=== PATIENT | male | born 1980 | race African-American/Black ===

== ENCOUNTER 2019-05-09 12:34 | Emergency (ER) | payer BC ==
[2019-05-09 12:44] VITALS: BP 138/89; PULSE 100; TEMP 100.4; BMI 25.0
[2019-05-09] MEDS ORDERED: ACETAMINOPHEN 500 MG TABLET (FP) PO ONE (14:04)
--- NOTE | 2019-05-09 14:07 | PDOC ---
History of Present Illness - General Chief Complaint: Cold Symptoms Stated Complaint: FEVER/ COUGH Time Seen by Provider: 05/09/19 13:37 - History of Present Illness Initial Comments: 05/09/19 14:05 39-year-old male without comorbidities presents for flulike symptoms x1 day Past History - Past Medical History Allergies/Adverse Reactions: Allergies Allergy/AdvReac Type Severity Reaction Status Date / Time No Known Allergies Allergy Verified 05/09/19 12:44 Home Medications: Ambulatory Orders Ondansetron [Zofran -] 4 mg PO TID PRN #14 tablet 06/08/15 Oseltamivir Phosphate [Tamiflu] 75 mg PO BID #10 capsule 05/09/19 COPD: No - Psycho Social/Smoking Cessation Hx Smoking History: Current every day smoker Have you smoked in the past 12 months: Yes Number of Cigarettes Smoked Daily: 10 Information on smoking cessation initiated: No Hx Alcohol Use: No Drug/Substance Use Hx: No Substance Use Type: Alcohol Review of Systems - Review of Systems Constitutional: Yes: Chills, Fever, Malaise, Night Sweats HEENTM: Yes: Nose Congestion Respiratory: Yes: Cough Neurological: Yes: Headache *Physical Exam - Vital Signs Last Vital Signs Temp Pulse Resp BP Pulse Ox 100.4 F H 100 H 18 138/89 98 05/09/19 12:42 05/09/19 12:42 05/09/19 12:42 05/09/19 12:42 05/09/19 12:42 - Physical Exam 05/09/19 14:06 GENERAL: The patient is awake, alert, and fully oriented, in no acute distress. HEAD: Normal with no signs of trauma. EYES: sclera anicteric, conjunctiva clear. ENT: Ears normal tympanic membranes normal oropharynx clear uvula midline NECK: Normal range of motion LUNGS: Breath sounds equal, clear to auscultation bilaterally. No wheezes, and no crackles. HEART: S1 and S2 without murmur, rub or gallop. ABDOMEN: Soft, nontender, normoactive bowel sounds. No guarding, no rebound. No masses. EXTREMITIES: Normal range of motion, no edema. No clubbing or cyanosis. No cords, erythema, or tenderness. NEUROLOGICAL: Cranial nerves II through XII grossly intact. PSYCH: Normal mood, normal affect. SKIN: Warm, Dry, normal turgor, no rashes or lesions noted. Medical Decision Making - Medical Decision Making 05/09/19 14:06 We will treat for influenza based on symptoms and length of time Discharge - Discharge Information Problems reviewed: Yes Clinical Impression/Diagnosis: Influenza Condition: Stable Disposition: HOME - Admission No - Additional Discharge Information Prescriptions: Oseltamivir Phosphate [Tamiflu] 75 mg PO BID #10 capsule - Follow up/Referral Referrals: Bethany Barclay MD [Staff Physician] - - Patient Discharge Instructions Additional Instructions: Tylenol Motrin as directed for fever and body aches. Return to the emergency room for worsening symptoms and without fail follow-up with your primary care physician in 1 to 2 days for further evaluation and treatment options. Please take the Tamiflu as directed. - Post Discharge Activity Work/Back to School Note: Back to Work
[2019-05-09] MEDS ORDERED: ACETAMINOPHEN 500 MG TABLET (FP) ONE (14:11)
== END 2019-05-09 14:44 | disposition home or self-care (01) ==
LOC: JERFT 12:34
DX: J11.1 Influenza due to unidentified influenza virus with other respiratory manifestations (principal)
CPT/HCPCS: 99283-25

== ENCOUNTER 2020-10-02 14:26 | Emergency (ER) | payer BC ==
[2020-10-02 15:03] VITALS: TEMP 99.2; BMI 25.0
[2020-10-02] MEDS ORDERED: FAMOTIDINE 20 MG/50 ML IVPB 20 MG/50 ML MG IVPB ONE ×2 (16:00→16:19)
[2020-10-02] MEDS ORDERED: SODIUM CHLORIDE 0.9% 500 ML INFUS.BAG IV ONE (16:00)
[2020-10-02] MEDS ORDERED: ONDANSETRON 4 MG/2 ML VIAL IVPUSH ONE (16:00)
[2020-10-02] MEDS ORDERED: morphine CARPU-JECT 2 MG/1 ML DISP.SYRIN IVPUSH ONE (16:03)
[2020-10-02] MEDS ORDERED: MORPHINE SULFATE 2 MG/ML VIAL ONE (16:19)
[2020-10-02] MEDS ORDERED: ONDANSETRON 4 MG/2 ML VIAL ONE (16:19)
[2020-10-02 17:27] LABS: BASO % 0.2 % (0-2.0); EOS % 0.1 % (0-4.5); HEMATOCRIT 41.9 % (35.4-49); HEMOGLOBIN 14.1 GM/dL (11.7-16.9); LYMPH % 2.4 % (8-40); MCH 28.8 pg (25.7-33.7); MCHC 33.6 g/dl (32.0-35.9); MEAN CELL VOLUME 85.7 fl (80-96); MEAN PLT VOLUME 8.5 fl (7.5-11.1); MONO % 3.7 % (3.8-10.2); NEUT % 93.6 % (42.8-82.8); PLATELET COUNT 223 10^3/uL (134-434); RBC 4.89 M/mm3 (4.00-5.60); RDW 13.1 % (11.9-15.9); WHITE BLOOD COUNT 13.9 K/mm3 (4.0-10.0)
[2020-10-02 17:50] LABS: ALBUMIN 4.3 g/dl (3.4-5.0); CALCIUM 9.2 mg/dL (8.5-10.1)
[2020-10-02 17:52] LABS: BLOOD UREA NITROGEN 15.7 mg/dL (7-18)
[2020-10-02 17:55] LABS: TOT PROT 7.8 g/dl (6.4-8.2)
[2020-10-02 18:13] LABS: PLATELET ESTIMATE NORMAL
[2020-10-02 18:58] LABS: EPI CELLS 1 /uL (0-25.1); HYALINE CASTS 0 /uL (0-3.1); PH,URINE 5.5 (5.0-8.0); URINE APPEARANCE CLEAR; URINE BACTERIA 7 /uL (0-1359); URINE BILIRUBIN NEGATIVE (NEGATIVE); URINE COLOR YELLOW; URINE GLUCOSE (UA) NEGATIVE (NEGATIVE); URINE KETONE NEGATIVE (NEGATIVE); URINE LEUK ESTERASE NEGATIVE (NEGATIVE); URINE NITRITE NEGATIVE (NEGATIVE); URINE PROTEIN NEGATIVE (NEGATIVE); URINE RBC 16 /uL (0-23.9); URINE UROBILINOGEN 0.2 mg/dL (0.2-1.0); URINE WBC 1 /uL (0-25.8)
[2020-10-02] MEDS ORDERED: KETOROLAC TROMETHAMINE 30 MG/1 ML VIAL IVPUSH ONE (19:31)
[2020-10-02] MEDS ORDERED: metroNIDAZOLE 500 MG TABLET PO ONE (20:48)
[2020-10-02] MEDS ORDERED: KETOROLAC TROMETHAMINE 30 MG/1 ML VIAL ONE (20:54)
[2020-10-02] MEDS ORDERED: metroNIDAZOLE 250 MG TABLET ONE (20:54)
[2020-10-02 21:20] VITALS: BP 128/7; PULSE 89
== END 2020-10-02 21:20 | disposition home or self-care (01) ==
LOC: JER 14:26
PROC: 3E033GC Introduction of Other Therapeutic Substance into Peripheral Vein, Percutaneous Approach (ICD-10-PCS; principal; 2020-10-02)
PROC: 3E033GC Introduction of Other Therapeutic Substance into Peripheral Vein, Percutaneous Approach (ICD-10-PCS; 2020-10-02)
PROC: 3E0333Z Introduction of Anti-inflammatory into Peripheral Vein, Percutaneous Approach (ICD-10-PCS; 2020-10-02)
PROC: 3E033NZ Introduction of Analgesics, Hypnotics, Sedatives into Peripheral Vein, Percutaneous Approach (ICD-10-PCS; 2020-10-02)
PROC: 3E033GC Introduction of Other Therapeutic Substance into Peripheral Vein, Percutaneous Approach (ICD-10-PCS; 2020-10-02)
DX: K52.9 Noninfective gastroenteritis and colitis, unspecified (principal)
CPT/HCPCS: 36415; 71045-TC-FY; 74177-TC; 80053; 81003; 85025; 86850; 86900; 86901; 93005; 93010; 99285-25; C9803; Q9967; U0003; U0005

== ENCOUNTER 2021-03-06 09:56 | Emergency (ER) | payer BC ==
[2021-03-06 10:29] VITALS: BP 160/100; PULSE 76; TEMP 98; BMI 24.3
[2021-03-06] MEDS ORDERED: KETOROLAC TROMETHAMINE 30 MG/1 ML VIAL IM ONE (12:01)
[2021-03-06] MEDS ORDERED: KETOROLAC TROMETHAMINE 30 MG/1 ML VIAL ONE (12:04)
== END 2021-03-06 12:26 | disposition home or self-care (01) ==
LOC: JERFT 09:56 → JER 09:56 → JERFT 12:26
PROC: 3E0233Z Introduction of Anti-inflammatory into Muscle, Percutaneous Approach (ICD-10-PCS; principal; 2021-03-06)
DX: M10.9 Gout, unspecified (principal)
CPT/HCPCS: 99284-25

== ENCOUNTER 2021-09-03 08:41 | Emergency (ER) | payer BC, OTHER ==
[2021-09-03 08:55] VITALS: BMI 25.8
[2021-09-03] MEDS ORDERED: predniSONE 20 MG TABLET (UD) PO ONE (09:38)
[2021-09-03] MEDS ORDERED: KETOROLAC TROMETHAMINE 30 MG/1 ML VIAL IM ONE (09:43)
[2021-09-03] MEDS ORDERED: predniSONE 20 MG TABLET (UD) ONE (09:51)
[2021-09-03] MEDS ORDERED: KETOROLAC TROMETHAMINE 30 MG/1 ML VIAL ONE (09:51)
[2021-09-03 11:20] LABS: BASO % 0.3 % (0-2.0); EOS % 0.7 % (0-4.5); HEMATOCRIT 37.1 % (35.4-49); HEMOGLOBIN 12.6 GM/dL (11.7-16.9); LYMPH % 13.7 % (8-40); MCH 29.3 pg (25.7-33.7); MCHC 33.8 g/dl (32.0-35.9); MEAN CELL VOLUME 86.6 fl (80-96); MEAN PLT VOLUME 9.2 fl (7.5-11.1); MONO % 9.3 % (3.8-10.2); PLATELET COUNT 235 10^3/uL (134-434); RBC 4.29 M/mm3 (4.00-5.60); WHITE BLOOD COUNT 10.1 K/mm3 (4.0-10.0)
[2021-09-03 11:54] LABS: CALCIUM 8.8 mg/dL (8.5-10.1)
[2021-09-03 11:55] LABS: ALBUMIN 3.5 g/dl (3.4-5.0); BLOOD UREA NITROGEN 14.2 mg/dL (7-18)
[2021-09-03 11:58] LABS: CREATININE 0.8 mg/dL (0.55-1.3)
[2021-09-03 11:59] LABS: BILIRUBIN,TOTAL 0.7 mg/dL (0.2-1)
[2021-09-03 12:00] LABS: TOT PROT 7.3 g/dl (6.4-8.2)
[2021-09-03 12:08] LABS: ERYTHROCYTE SEDIMENTATION RATE 28 mm/hr (0-10)
[2021-09-03 14:32] VITALS: BP 138/57; PULSE 68; TEMP 98.1
== END 2021-09-03 14:32 | disposition home or self-care (01) ==
LOC: JER 08:41
PROC: 3E0233Z Introduction of Anti-inflammatory into Muscle, Percutaneous Approach (ICD-10-PCS; principal; 2021-09-03)
DX: M25.462 Effusion, left knee (principal); M79.605 Pain in left leg
CPT/HCPCS: 36415; 73560-TC-LT-FY; 80053; 84550; 85025; 85651; 86140; 93971-TC; 99285-25

== ENCOUNTER 2022-10-23 08:14 | Emergency (ER) | payer SELFPAY ==
[2022-10-23 08:19] VITALS: RESP 18; BMI 23.5
[2022-10-23] MEDS ORDERED: LACTATED RINGERS SOLUTION 1000 ML INFUS.BAG IV ONE (08:37)
[2022-10-23] MEDS ORDERED: FAMOTIDINE 20 MG/50 ML IVPB 20 MG/50 ML MG IVPB ONE (08:57)
[2022-10-23] MEDS ORDERED: PANTOPRAZOLE SODIUM 40 MG VIAL IVPUSH ONE (09:01)
[2022-10-23] MEDS ORDERED: ACETAMINOPHEN 1000 MG/100 ML BAG IVPB ONE (09:02)
[2022-10-23] MEDS ORDERED: diazePAM CARPU-JECT 10 MG/2 ML DISP.SYRIN IVPUSH ONE (09:04)
[2022-10-23] MEDS ORDERED: PANTOPRAZOLE SODIUM 40 MG/100 ML BAG IVPB ONE (09:07)
[2022-10-23] MEDS ORDERED: FAMOTIDINE 10 MG/ML VIAL IVPB ONE (09:07)
[2022-10-23] MEDS ORDERED: ACETAMINOPHEN INJECTION 100 ML IVPB ONE (09:24)
[2022-10-23 09:32] LABS: EOS % 0.6 % (0-4.5); HEMOGLOBIN 14.3 GM/dL (11.7-16.9); LYMPH % 16.5 % (8-40); MCH 29.1 pg (25.7-33.7); MCHC 33.2 g/dl (32.0-35.9); MEAN CELL VOLUME 87.6 fl (80-96); MEAN PLT VOLUME 8.3 fl (7.5-11.1); MONO % 6.9 % (3.8-10.2); PLATELET COUNT 261 10^3/uL (134-434); RDW 13.7 % (11.9-15.9); WHITE BLOOD COUNT 7.4 K/mm3 (4.0-10.0)
[2022-10-23 09:36] LABS: INR 1.01 (0.83-1.09); PROTHROMBIN TIME (PATIENT) 11.7 SEC (9.7-13.0)
[2022-10-23 09:38] LABS: ACTIVATED PTT 27.6 SECONDS (25.2-36.5)
[2022-10-23 10:02] LABS: POTASSIUM 3.6 mmol/L (3.5-5.1)
[2022-10-23 10:03] LABS: CALCIUM 9.2 mg/dL (8.5-10.1)
[2022-10-23 10:04] LABS: BLOOD UREA NITROGEN 9.9 mg/dL (7-18); MAGNESIUM 2.1 mg/dL (1.8-2.4)
[2022-10-23 10:09] LABS: BILIRUBIN,TOTAL 0.8 mg/dL (0.2-1); TOT PROT 7.7 g/dl (6.4-8.2)
[2022-10-23 12:10] VITALS: BP 136/89; PULSE 74; TEMP 98.3
[2022-10-23] MEDS ORDERED: MAG HYDROX/AL HYDROX/SIMETH 30 ML UNIT-DOSE CUP PO ONE (12:38)
[2022-10-23] MEDS ORDERED: MAG HYDROX/AL HYDROX/SIMETH 30 ML UNIT-DOSE CUP ONE (12:44)
== END 2022-10-23 14:34 | disposition home or self-care (01) ==
LOC: JER 08:14
PROC: 3E033GC Introduction of Other Therapeutic Substance into Peripheral Vein, Percutaneous Approach (ICD-10-PCS; principal; 2022-10-23)
PROC: 3E033NZ Introduction of Analgesics, Hypnotics, Sedatives into Peripheral Vein, Percutaneous Approach (ICD-10-PCS; 2022-10-23)
PROC: 3E033GC Introduction of Other Therapeutic Substance into Peripheral Vein, Percutaneous Approach (ICD-10-PCS; 2022-10-23)
DX: R11.2 Nausea with vomiting, unspecified (principal); R10.84 Generalized abdominal pain; K92.1 Melena; R07.9 Chest pain, unspecified; K52.9 Noninfective gastroenteritis and colitis, unspecified; K70.9 Alcoholic liver disease, unspecified
CPT/HCPCS: 36415; 71046-TC-FY; 74177-TC; 76700-TC; 80053; 82272; 83690; 83735; 84484; 85025; 85610; 85730; 86850; 86900; 86901; 93005; 93010; 99285-25; Q9967

== ENCOUNTER 2022-11-06 22:31 | Emergency (ER) | payer SELFPAY ==
[2022-11-06 22:57] VITALS: BP 142/90; PULSE 89; RESP 14; TEMP 98.2; BMI 25.0
[2022-11-07 01:27] LABS: BASO % 0.6 % (0-2.0); EOS % 0.4 % (0-4.5); HEMATOCRIT 41.1 % (35.4-49); LYMPH % 22.6 % (8-40); MCH 29.8 pg (25.7-33.7); MCHC 33.9 g/dl (32.0-35.9); MONO % 7.3 % (3.8-10.2); NEUT % 69.1 % (42.8-82.8); PLATELET COUNT 317 10^3/uL (134-434); RBC 4.67 M/mm3 (4.00-5.60); RDW 14.2 % (11.9-15.9); WHITE BLOOD COUNT 7.9 K/mm3 (4.0-10.0)
[2022-11-07 01:56] LABS: POTASSIUM 3.4 mmol/L (3.5-5.1)
[2022-11-07 01:58] LABS: ALBUMIN 3.6 g/dl (3.4-5.0); CALCIUM 8.4 mg/dL (8.5-10.1)
[2022-11-07 01:59] LABS: BLOOD UREA NITROGEN 11.2 mg/dL (7-18)
[2022-11-07 02:01] LABS: CREATININE 0.9 mg/dL (0.55-1.3)
[2022-11-07 02:02] LABS: BILIRUBIN,TOTAL 0.4 mg/dL (0.2-1); TOT PROT 6.8 g/dl (6.4-8.2)
== END 2022-11-07 04:37 | disposition home or self-care (01) ==
LOC: JER 22:31
DX: R07.89 Other chest pain (principal); R00.2 Palpitations
CPT/HCPCS: 36415; 71046-TC-FY; 80053; 84484; 85025; 93005; 93010; 99285-25

== ENCOUNTER 2023-01-11 00:22 | Emergency (ER) | payer OTHER ==
[2023-01-11 00:29] VITALS: BP 142/97; PULSE 90; RESP 20; TEMP 98; BMI 22.7
[2023-01-11] MEDS ORDERED: ACETAMINOPHEN 500 MG TABLET (FP) PO ONE (06:40)
[2023-01-11] MEDS ORDERED: ACETAMINOPHEN 500 MG TABLET (FP) ONE (06:44)
== END 2023-01-11 06:47 | disposition home or self-care (01) ==
LOC: JER 00:22
DX: M54.9 Dorsalgia, unspecified (principal)
CPT/HCPCS: 99282-25